=== PATIENT | female | born 1960 | race Caucasian/White ===

== ENCOUNTER → 2024-08-10 | Outpatient (CLI) | payer MEDICAID, SELFPAY ==
--- NOTE | 2024-08-10 11:30 | XR_ITS ---
Examination: CT chest, without intravenous contrast. Sagittal and coronal 2-D reconstructions. Exam date and time: August 10, 2024 1113 hours Comparison January 20, 2024 INDICATIONS: Diagnosis carcinoma of the small intestine diagnosis 2017, restaging, pulmonary nodules on CT chest August 10, 2024 CTDI:vol (mGy) 21.8 DLP: (mGycm) 743 Technique: Multiple 3.0 mm axial sections of the chest to been obtained. Bone and lung density settings are obtained. Sagittal and coronal 2-D reconstructions have been obtained. Low dose protocols were performed. One or more of the following dose reduction techniques were used; automated exposure control, adjustment of the mA and/or KV according to patient size, use of iterative reconstruction technique. Findings: Stable 15 mm right tracheobronchial lymph node compared with January 20, 2024 No thoracic aortic aneurysm dilatation Intact pulmonary arteries Stable bilateral pulmonary nodules compared with January 20, 2024, no new pulmonary nodules No interval pneumonia or pulmonary edema No interval liver or splenic lesion Kidneys partially visualized no hydronephrosis Significant osteopenia with diffuse moderate to advanced thoracic degenerative disc disease IMPRESSION: Stable 15 mm right tracheobronchial lymph node compared with CT chest January 20, 2024 Stable bilateral pulmonary nodules compared with January 20, 2024 CT chest No new pulmonary nodules
== END | disposition home or self-care (01) ==
PROVIDERS: PCP Family Medicine; Referring Provider Internal Medicine Hematology & Oncology; Visit Provider Internal Medicine Hematology & Oncology
DX: R91.8 Other nonspecific abnormal finding of lung field (principal); C17.9 Malignant neoplasm of small intestine, unspecified
CPT/HCPCS: 71250

== ENCOUNTER 2024-08-18 09:51 | Outpatient (RCR) | payer MEDICAID, SELFPAY ==
--- NOTE | 2024-09-13 20:09 | CTCFLWUP_ITS ---
Patient: TIFFANI ARNOLD : 1960 Page 2 of 4 FOLLOW UP NOTE DATE OF SERVICE: 08/18/2024 NAME: TIFFANI ARNOLD ACCOUNT: [id number] : 1960 AGE: 63 INTERVAL HISTORY: Patient is doing well. 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 daily since July 2016 -April 2022. Ms. Arnold discontinued imatinib due to fluid retention. Treated with diuretics. Restarted imatinib in August 2022. Hepatomegaly with suspicion of cirrhosis. Ms. Arnold denies any history of alcohol abuse. Hepatitis panel negative Obesity REASON FOR TODAY?S VISIT: This is office follow-up visit. Ms. Arnold is here at [facility]. She is clinically doing very well. Denies any new complaints. Currently she is on imatinib. Tolerating it very well without any significant fluid retention. Patient denies any cough, chest pain, abdominal pain or leg cramps Malignant neoplasm of small intestine, unspecified [ICD10] C17.9 TREATMENT HISTORY: Care?Plan Start?Date Cycle Day Intent B?12 06/07/2022 1 28 Palliative HISTORY OF PRESENT ILLNESS: Tiffani Arnold is a 63-year-old female with following history. 07/26/2016: Patient had segmental resection of the small bowel. Ms. Arnold is here at [facility]. She is clinically doing very well. Denies any new complaints. Currently she is on imatinib. Tolerating it very well without any significant fluid retention. 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 atorvastatin - 20 mg 1 tab Daily 2. atorvastatin - 40 mg 1 tab Daily 3. B12 - 5,000-100 mcg 1 tab Daily 4. carvedilol - 6.25 mg 1 tab Twice a Day 5. Centrum Silver Ultra Women's - 1 tab Daily 6. fenofibrate - 54 mg 1 tab Daily 7. furosemide - 40 mg 1 tab Twice a Day 8. Gemtesa - 75 mg 1 tab Twice a Day 9. imatinib - 400 mg 1 tab Daily 10. Vitamin C - 1,000 mg 1,000 mg Twice a Day 11. Xigduo XR - 5-1,000 mg 1 tab Daily 12. Xigduo XR - 10-1,000 mg 1 Daily Medications Last Reconciled by Zeinab Shankar MA on 08/18/2024 ALLERGIES: sulfasalazine REVIEW OF SYSTEMS: A complete 14-point review of systems was performed and is negative except as noted in interval history. PHYSICAL EXAMINATION: VITAL SIGNS: Temperature?98.2, B/P?137/74, Oxygen?Saturation?94% Weight?301?lbs PAIN: 0 - No pain ECOG Performance Status: 0 - Asymptomatic and fully active GENERAL APPEARANCE: Appears well, in no apparent distress, appropriately interactive. HEENT: Normocephalic, no temporal wasting, normal conjunctiva, no scleral icterus, normal hearing, lips without lesions, neck normal range of motion. CARDIOVASCULAR: Not assessed. PULMONARY: Normal respiratory effort, no respiratory distress or use of accessory muscles, speaking in full sentences, no tachypnea. EXTREMITIES: No pedal edema or cyanosis. SKIN: Normal skin appearance. NEUROLOGIC: Alert and oriented x4. PSHYCHIATRIC: Appropriate affect, mood normal, behavior normal, intact thought and speech. LABORATORY DATA: I have personally reviewed and interpreted each of the patient?s relevant lab tests, abnormal findings are below: Date 07/06/20 09/08/21 ??WHITE?BLOOD?COUNT?(Thou/mm3) 7.5 7.2 ??RED?BLOOD?COUNT?(Miln/mm3) 4.26 3.38?L ??HEMOGLOBIN?(gm/dl) 12.6 9.1?L ??HEMATOCRIT?(%) 40.3 31.0?L ??PLATELET?COUNT?(Thou/mm3) 214 286 ??NEUTROPHILS?%,?AUTO?(%) 67 73 ??LYMPH?%,?AUTO?(%) 17 11 ??NEUTROPHILS,?AUTO?(Thou/mm3) 5.0 5.3 ??GLUCOSE,RANDOM?(mg/dL) 146?H 159?H ??BLOOD?UREA?NITROGEN?(mg/dL) 13 11 ??CREATININE?(mg/dL) 0.70 0.50?L ??SODIUM?(mmol/L) 142 143 ??POTASSIUM?(mmol/L) 4.2 3.9 ??CHLORIDE?(mmol/L) 105 106 ??CrCl?(CandG)?(ml/min) 134.40 185.84 ??AST/SGOT?(Unit/L) 30 24 ??ALT/SGPT?(Unit/L) 27 23 ??ALKALINE?PHOSPHATASE?(Unit/L) 83 100 ??BILIRUBIN,?TOTAL?(mg/dL) 0.6 0.3 ??PROTEIN?TOTAL?(gm/dl) 6.3 6.1 ??ALBUMIN,?SERUM?(gm/dl) 4.2 3.8 ??GLOBULIN?(gm/dl) 2.1?L 2.3 ??ALBUMIN/GLOBULIN?RATIO 2.0 1.7 ??CALCIUM,?SERUM?(mg/dL) 9.4 8.6 ??CALCIUM?SERUM?(CORRECTED)?(mg/dL) 9.4 8.8 ASSESSMENT/PLAN: The patient is clinically doing well. Denies any complaints. The patient is tolerating imatinib well without any significant side effects. CT scan of the chest abdomen pelvis with IV contrast done on 01/20/2024 is negative for metastatic disease. Currently Ms. Arnold is on adjuvant imatinib 400 mg p.o. daily. Obesity. Hepatomegaly with fatty infiltration probably secondary to obesity. Hepatitis panel negative for History of high-grade gastrointestinal stromal tumor status post resection. I have explained to the patient that continuing imatinib may not be any more beneficial since there were no studies done to see that if continuing imatinib over 5 years is any beneficial. However patient would like to continue imatinib. She feels that imatinib is preventing the cancer for recurrence. She also thinks that since she is not having significant side effects from imatinib she would like to continue. the relapse free survival rate for patients receiving imatinib for more than 5 years was significantly better than those who receiving treatment for less than 5 years. The patient has been on imatinib since 2017. Main side effect seems to be fluid retention which is being controlled by diuretics. Will see her back in clinic in 4 months for follow-up with labs. ORDERS: Order # Description [id number] CT Scan + Abdomen and Pelvis + Chest + With W/O Contrast RETURN TO CLINIC: 3 months BILLING AND COMPLIANCE: I reviewed external records from providers outside my specialty as summarized above. I spent a total of 50 minutes on this patient?s care on the day of their visit excluding time spent related to any billed procedures. This time includes time spent with the patient as well as time spent documenting in the medical record, reviewing patients records and tests, obtaining history, placing orders, communicating with other healthcare professionals, counseling the patient, family or caregiver, and/or care coordination for the diagnoses above. Electronically Signed by: Doug Lozano MD T: 8:07 PM CC: Sacha?Frantz,?, Hans?Xander?(Agata),? PCP: Memo Andres Referring: Memo Andres This document was completed utilizing speech recognition software. Grammatical errors, random word insertions, pronoun errors, and incomplete sentences are an occasional consequence of this system due to software limitations, ambient noise, and hardware issues. Any formal questions or concerns about the content, text or information contained within the body of this dictation should be directly addressed to the provider for clarification.
== END 2024-08-24 23:59 | disposition home or self-care (01) ==
LOC: SCTC 09:51
PROVIDERS: PCP Family Medicine; Referring Provider Family Medicine; Visit Provider Internal Medicine Hematology & Oncology
DX: Z08 Encounter for follow-up examination after completed treatment for malignant neoplasm (principal); Z85.068 Personal history of other malignant neoplasm of small intestine; Z92.21 Personal history of antineoplastic chemotherapy; E66.9 Obesity, unspecified; K76.0 Fatty (change of) liver, not elsewhere classified
CPT/HCPCS: 99212; G0463

== ENCOUNTER 2025-02-17 10:39 | Outpatient (RCR) | payer MEDICAID, SELFPAY | END 2025-02-23 23:59 | disposition home or self-care (01) | LOC: SCTC 10:39 | PROVIDERS: PCP Nurse Practitioner Family; Referring Provider Family Medicine; Visit Provider Internal Medicine Hematology & Oncology | DX: Z08 Encounter for follow-up examination after completed treatment for malignant neoplasm (principal); Z85.068 Personal history of other malignant neoplasm of small intestine; E66.9 Obesity, unspecified; K76.0 Fatty (change of) liver, not elsewhere classified; Z90.49 Acquired absence of other specified parts of digestive tract | CPT/HCPCS: 99212; G0463 ==

== ENCOUNTER → 2025-03-04 | Outpatient (CLI) | payer MEDICAID, SELFPAY ==
[2025-02-25 11:30] LABS: Basophils # (Auto) 0.1 Thou/mm3 (0.0-0.2); Basophils % (Auto) 1 % (0-2.5); Eosinophils # (Auto) 0.7 Thou/mm3 (0.0-0.5); Eosinophils % (Auto) 8 % (0-10); Hematocrit 48.5 % (36.0-46.0); Hemoglobin 16.0 g/dL (12.0-16.0); Immature Granulocytes Auto 0.05 Thou/mm3 (0.00-0.00); Lymphocytes # (Auto) 1.4 Thou/mm3 (1.0-4.8); Lymphocytes % (Auto) 15 % (10-50); Mean Corpuscular HGB Conc 33.0 g/dl (31.0-37.0); Mean Corpuscular Hemoglobin 30.7 pg (25.0-35.0); Mean Corpuscular Volume 93 fL (80-100); Monocytes # (Auto) 0.6 Thou/mm3 (0.0-0.8); Monocytes % (Auto) 7 % (0-12); Neutrophils # (Auto) 6.6 Thou/mm3 (1.8-7.7); Neutrophils % (Auto) 69 % (37-80); Nucleated Red Blood Cell # 0.00 Thou/mm3 (0.00-0.00); Nucleated Red Blood Cell % 0 /100 WBC (0); Platelet Count 220 Thou/mm3 (140-440); RDW Standard Deviation 45.8 fL (36.4-46.3); Red Blood Count 5.21 Miln/mm3 (4.00-5.20); White Blood Count 9.6 Thou/mm3 (3.6-11.0)
[2025-02-25 11:45] LABS: Alanine Aminotransferase 14 U/L (10-49); Albumin, Serum 4.0 gm/dL (3.4-4.8); Albumin/Globulin Ratio 1.6 (1.2-2.2); Alkaline Phosphatase 99 U/L (46-116); Anion Gap 8 (7-16); Aspartate Amino Transferase 19 U/L (0-34); BUN/Creatinine Ratio 15 Ratio (12-20); Bilirubin,Total 0.6 mg/dL (0.3-1.2); Blood Urea Nitrogen 12 mg/dL (9-23); Calcium 9.2 mg/dL (8.3-10.6); Calcium (Corrected) 9.2 mg/dL (8.5-10.1); Carbon Dioxide 29.1 mMol/L (20.0-31.0); Chloride 104 mMol/L (98-107); Creatinine (Component) 0.8 mg/dL (0.6-1.3); Globulin 2.5 gm/dL (2.3-3.5); Glucose 245 mg/dL (74-106); LDH (Lactate Dehydrogenase) 228 U/L (120-246); Osmolality,Calculated 288 (275-295); Potassium 4.1 mMol/L (3.4-5.1); Sodium 141 mMol/L (136-145); Total Protein 6.5 gm/dL (5.7-8.2); Uric Acid 5.2 mg/dL (3.1-7.8); eGFR > 60 See Note
--- NOTE | 2025-03-04 09:55 | XR_ITS ---
Examination: CT chest with intravenous contrast CT abdomen with intravenous contrast CT pelvis with intravenous contrast CT chest without intravenous contrast CT pelvis without intravenous contrast CT abdomen without intravenous contrast 2-D coronal and sagittal reconstructions Time of exam: March 04, 2025, 1048 hours, comparison CT chest August 10, 2024, CT chest abdomen pelvis January 20, 2024 INDICATIONS: Diagnosis malignant neoplasm of small intestine 2017, pulmonary nodule history, restaging CTDI: vol (mGy) : 44.3 DLP: (mGycm): 3521 Technique: Multiple axial images of the chest, abdomen and pelvis with intravenous contrast, 3.0 mm slice thickness. Images obtained post intravenous injection Isovue 370 60 cc. 2-D sagittal and coronal reconstructions. Low dose protocols were performed. One or more of the following dose reduction techniques were used; automated exposure control, adjustment of the mA and/or KV according to patient size, use of iterative reconstruction technique. Findings: Right tracheobronchial lymph node 9 mm compared to 15 mm on August 10, 2024 No interval mediastinal lymphadenopathy. No thoracic aortic aneurysmal dilatation or dissection. No pulmonary artery filling defects New 12 mm pleural-based pulmonary nodule mid left chest axial image 98, not seen on the August 10, 2024 exam No pneumonia or pulmonary edema No interval liver or splenic lesions Small gallstones No pancreatic or adrenal mass Stable subcentimeter periaortic lymph nodes compared to the CT abdomen January 20, 2024 No interval ascites No bowel obstruction, no hydronephrosis Urinary bladder intact No pelvic mass Prominent osteopenia with moderate to advanced diffuse thoracic and lumbar degenerative disc disease IMPRESSION: Right tracheobronchial lymph node 9 mm compared to 15 mm on August 10, 2024 No interval mediastinal lymphadenopathy Pulmonary nodules August 10, 2024 are unchanged in size compared to the current study, however new pleural-based 12 mm pulmonary nodule mid left chest, recommend continued 6-month follow-up CT chest without contrast No interval metastatic disease in the abdomen and pelvis compared with January 20, 2024
== END | disposition home or self-care (01) ==
LOC: SCAT 09:15
PROVIDERS: PCP Nurse Practitioner Family; Referring Provider Internal Medicine Hematology & Oncology; Visit Provider Internal Medicine Hematology & Oncology
DX: R91.8 Other nonspecific abnormal finding of lung field (principal); C17.9 Malignant neoplasm of small intestine, unspecified
CPT/HCPCS: 36415; 71270; 74178; 80053; 83615; 84550; 85025; A4649; Q9967

== ENCOUNTER 2025-04-20 13:31 | Outpatient (RCR) | payer MEDICAID, SELFPAY ==
--- NOTE | 2025-04-20 14:31 | CTCFLWUP_ITS ---
Patient: TIFFANI ARNOLD : 1960 Page 2 of 4 FOLLOW UP NOTE DATE OF SERVICE: 04/20/2025 NAME: TIFFANI ARNOLD ACCOUNT: [id number] : 1960 AGE: 64 INTERVAL HISTORY: Patient is doing well. Patient now have stable cell counts. 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 daily since July 2016 -April 2022. Ms. Arnold discontinued imatinib due to fluid retention. Treated with diuretics. Restarted imatinib in August 2022. Hepatomegaly with suspicion of cirrhosis. Ms. Arnold denies any history of alcohol abuse. Hepatitis panel negative Obesity REASON FOR TODAY?S VISIT: This is office follow-up visit. Ms. Arnold is here at [facility]. She is clinically doing very well. Denies any new complaints. Currently she is on imatinib. Tolerating it very well without any significant fluid retention. Patient denies any cough, chest pain, abdominal pain or leg cramps Malignant neoplasm of small intestine, unspecified [ICD10] C17.9 TREATMENT HISTORY: Care?Plan Start?Date Cycle Day Intent B?12 06/07/2022 1 28 Palliative HISTORY OF PRESENT ILLNESS: Tiffani Arnold is a 64-year-old female with following history. 07/26/2016: Patient had segmental resection of the small bowel. Ms. Arnold is here at [facility]. She is clinically doing very well. Denies any new complaints. Currently she is on imatinib. Tolerating it very well without any significant fluid retention. 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 atorvastatin - 20 mg 1 tab Daily 2. atorvastatin - 40 mg 1 tab Daily 3. B12 - 5,000-100 mcg 1 tab Daily 4. carvedilol - 6.25 mg 1 tab Twice a Day 5. Centrum Silver Ultra Women's - 1 tab Daily 6. fenofibrate - 54 mg 1 tab Daily 7. furosemide - 40 mg 1 tab Twice a Day 8. Gemtesa - 75 mg 1 tab Twice a Day 9. imatinib - 400 mg 1 tab Daily 10. Januvia - 100 mg 1 tab Daily 11. Vitamin C - 1,000 mg 1,000 mg Twice a Day 12. Xigduo XR - 5-1,000 mg 1 tab Daily 13. Xigduo XR - 10-1,000 mg 1 Daily Medications Last Reconciled by Michelle Oneal MD on 02/17/2025 ALLERGIES: sulfasalazine REVIEW OF SYSTEMS: A complete 14-point review of systems was performed and is negative except as noted in interval history. PHYSICAL EXAMINATION: VITAL SIGNS: PAIN: 0 - No pain ECOG Performance Status: 0 - Asymptomatic and fully active GENERAL APPEARANCE: Appears well, in no apparent distress, appropriately interactive. HEENT: Normocephalic, no temporal wasting, normal conjunctiva, no scleral icterus, normal hearing, lips without lesions, neck normal range of motion. CARDIOVASCULAR: Not assessed. PULMONARY: Normal respiratory effort, no respiratory distress or use of accessory muscles, speaking in full sentences, no tachypnea. EXTREMITIES: No pedal edema or cyanosis. SKIN: Normal skin appearance. NEUROLOGIC: Alert and oriented x4. PSHYCHIATRIC: Appropriate affect, mood normal, behavior normal, intact thought and speech. LABORATORY DATA: I have personally reviewed and interpreted each of the patient?s relevant lab tests, abnormal findings are below: Date 09/08/21 02/25/25 ??WHITE?BLOOD?COUNT?(Thou/mm3) ? 9.6 ??RED?BLOOD?COUNT?(Miln/mm3) ? 5.21?H ??HEMOGLOBIN?(gm/dl) ? 16.0 ??HEMATOCRIT?(%) ? 48.5?H ??PLATELET?COUNT?(Thou/mm3) ? 220 ??NEUTROPHILS?%,?AUTO?(%) ? 69 ??LYMPH?%,?AUTO?(%) ? 15 ??NEUTROPHILS,?AUTO?(Thou/mm3) ? 6.6 ??GLUCOSE,RANDOM?(mg/dL) 159?H 245?H ??BLOOD?UREA?NITROGEN?(mg/dL) 11 12 ??CREATININE?(mg/dL) 0.50?L 0.80 ??SODIUM?(mmol/L) 143 141 ??POTASSIUM?(mmol/L) 3.9 4.1 ??CHLORIDE?(mmol/L) 106 104 ??CrCl?(CandG)?(ml/min) 185.84 157.70 ??AST/SGOT?(Unit/L) 24 19 ??ALT/SGPT?(Unit/L) 23 14 ??ALKALINE?PHOSPHATASE?(Unit/L) 100 99 ??BILIRUBIN,?TOTAL?(mg/dL) 0.3 0.6 ??PROTEIN?TOTAL?(gm/dl) 6.1 6.5 ??ALBUMIN,?SERUM?(gm/dl) 3.8 4.0 ??GLOBULIN?(gm/dl) 2.3 2.5 ??ALBUMIN/GLOBULIN?RATIO 1.7 1.6 ??CALCIUM,?SERUM?(mg/dL) 8.6 9.2 ??CALCIUM?SERUM?(CORRECTED)?(mg/dL) 8.8 9.2 ??LDH,?TOTAL?(Unit/L) ? 228 ASSESSMENT/PLAN: The patient is clinically doing well. Denies any complaints. The patient is tolerating imatinib well without any significant side effects. CT scan discussed and is stable Currently Ms. Arnold is on adjuvant imatinib 400 mg p.o. daily. Obesity. Hepatomegaly with fatty infiltration probably secondary to obesity. Hepatitis panel negative for History of high-grade gastrointestinal stromal tumor status post resection. I have explained to the patient that continuing imatinib may not be any more beneficial since there were no studies done to see that if continuing imatinib over 5 years is any beneficial. However patient would like to continue imatinib. She feels that imatinib is preventing the cancer for recurrence. She also thinks that since she is not having significant side effects from imatinib she would like to continue. the relapse free survival rate for patients receiving imatinib for more than 5 years was significantly better than those who receiving treatment for less than 5 years. The patient has been on imatinib since 2017. Main side effect seems to be fluid retention which is being controlled by diuretics. Patient was scheduled to get CT scan which is scheduled in few weeks Return with CT scan and labs ORDERS: Order # Description [id number] MD Follow Up 4 Week + Comprehensive Metabolic Panel - 12 + CBC with Auto Diff [id number] Uric Acid, Serum [id number] Lactate Dehydrogenase (LDH) [id number] Follow Up [id number] Scan + Abdomen and Pelvis + Chest + With W/O Contrast ORDERS: Order # Description RETURN TO CLINIC: I reviewed the diagnosis, prognosis, and recommended treatment/procedure options with the patient (and/or their legal electronics parts sales representative), including the potential benefits, risks, side effects and alternative therapies. We also discussed the option of no treatment and the possibility of clinical trial participation, if applicable. All questions were addressed, and they demonstrated understanding. They provided informed consent to proceed with the proposed plan of care. BILLING AND COMPLIANCE: I reviewed external records from providers outside my specialty as summarized above. I spent a total of 50 minutes on this patient?s care on the day of their visit excluding time spent related to any billed procedures. This time includes time spent with the patient as well as time spent documenting in the medical record, reviewing patients records and tests, obtaining history, placing orders, communicating with other healthcare professionals, counseling the patient, family or caregiver, and/or care coordination for the diagnoses above. Electronically Signed by: Doug Lozano MD T: 2:27 PM CC: Sacha?Frantz,?Hans SOLIS?Xander?(Agaat),? PCP: Janice Lewis Referring: Janice Lewis This document was completed utilizing speech recognition software. Grammatical errors, random word insertions, pronoun errors, and incomplete sentences are an occasional consequence of this system due to software limitations, ambient noise, and hardware issues. Any formal questions or concerns about the content, text or information contained within the body of this dictation should be directly addressed to the provider for clarification.
== END 2025-04-25 23:59 | disposition home or self-care (01) ==
LOC: SCTC 13:31
PROVIDERS: PCP Nurse Practitioner Family; Referring Provider Nurse Practitioner Family; Visit Provider Internal Medicine Hematology & Oncology
DX: Z08 Encounter for follow-up examination after completed treatment for malignant neoplasm (principal); Z85.068 Personal history of other malignant neoplasm of small intestine; K76.0 Fatty (change of) liver, not elsewhere classified; E66.9 Obesity, unspecified
CPT/HCPCS: 99212; G0463